=== PATIENT | male | born 1955 | race Caucasian/White ===

== ENCOUNTER 2016-09-27 12:41 | Emergency (ER) | payer BC ==
[2016-09-27] MEDS ORDERED: ASPIRIN 81 MG TABLET, CHEWABLE PO ONE (13:41)
--- NOTE | 2016-09-27 13:49 | ER Document Report ---
ED Medical Screen (RME) - General Chief Complaint: Dizziness Stated Complaint: DIZZINESS Time Seen by Provider: 09/27/16 13:40 Mode of Arrival: Ambulatory Information source: Patient Notes: 61-year-old male presents with complaints of indigestion over the past 2 nights today he had vertigo-like symptoms with chest tightness and flushing sensation. Patient denies any previous cardiac history, patient notes that he had a normal stress test recently I have greeted and performed a rapid initial assessment of this patient. A comprehensive ED assessment and evaluation of the patient, analysis of test results and completion of the medical decision making process will be conducted by additional ED providers. PHYSICAL EXAMINATION: GENERAL: Well-appearing, well-nourished and in no acute distress. HEAD: Atraumatic, normocephalic. EYES: Pupils equal round extraocular movements intact, conjunctiva are normal. ENT: Nares patent NECK: Normal range of motion LUNGS: No respiratory distress Musculoskeletal: Normal range of motion NEUROLOGICAL: Normal speech, normal gait. PSYCH: Normal mood, normal affect. SKIN: Warm, Dry, normal turgor, no rashes or lesions noted. TRAVEL OUTSIDE OF THE [place] IN LAST 30 DAYS: No - Related Data Allergies/Adverse Reactions: ant bites Allergy (Uncoded 09/27/16 13:29) Past Medical History - Social History Chew tobacco use (# tins/day): No Frequency of alcohol use: None Drug Abuse: None - Past Medical History Cardiac Medical History: Reports: Hx Hypertension Renal/ Medical History: Denies: Hx Peritoneal Dialysis Past Surgical History: Reports: Hx Orthopedic Surgery - right shoulder Physical Exam - Vital signs Vitals: Temp Pulse Resp BP Pulse Ox 97.8 F 63 16 175/94 H 94 09/27/16 12:49 09/27/16 12:49 09/27/16 12:49 09/27/16 12:49 09/27/16 12:49 Course - Vital Signs Vital signs: Temp Pulse Resp BP Pulse Ox 97.8 F 63 16 175/94 H 94 09/27/16 12:49 09/27/16 12:49 09/27/16 12:49 09/27/16 12:49 09/27/16 12:49
[2016-09-27 14:34] LABS: ABSOLUTE BASOPHILS # (AUTO) 0.1 10^3/uL (0.0-0.2); ABSOLUTE EOSINOPHILS # (AUTO) 0.2 10^3/uL (0.0-0.6); ABSOLUTE LYMPHOCYTES (AUTO) 2.6 10^3/uL (0.5-4.7); ABSOLUTE MONOCYTES (AUTO) 0.5 10^3/uL (0.1-1.4); ABSOLUTE NEUT (AUTO) 6.4 10^3/uL (1.7-8.2); BASOPHILS % (AUTO) 0.6 % (0-2); EOSINOPHILS % (AUTO) 2.1 % (0-6); HEMATOCRIT 48.1 % (37.9-51.0); HEMOGLOBIN 16.5 g/dL (13.5-17.0); HGB HCT DIFFERENCE 1.4; LYMPHOCYTES % (AUTO) 26.4 % (13-45); MEAN CORPUSCULAR HEMOGLOBIN 30.4 pg (27.0-33.4); MEAN CORPUSCULAR HGB CONC 34.2 g/dL (32.0-36.0); MEAN CORPUSCULAR VOLUME 89 fl (80-97); MONOCYTES % (AUTO) 5.3 % (3-13); RED BLOOD COUNT 5.41 10^6/uL (4.35-5.55); RED CELL DISTRIBUTION WIDTH 13.6 % (11.5-14.0); SEGMENTED NEUTROPHILS % (AUTO) 65.6 % (42-78); WHITE BLOOD COUNT 9.8 10^3/uL (4.0-10.5)
--- NOTE | 2016-09-27 14:40 | RADIOLOGY REPORT (SQ) ---
EXAM DESCRIPTION: CHEST SINGLE VIEW COMPLETED DATE/TIME: 09/27/2016 2:33 pm REASON FOR STUDY: dizzy COMPARISON: None. EXAM PARAMETERS: NUMBER OF VIEWS: One view. TECHNIQUE: Single frontal radiographic view of the chest acquired. RADIATION DOSE: NA LIMITATIONS: None. FINDINGS: LUNGS AND PLEURA: No opacities, masses or pneumothorax. No pleural effusion. MEDIASTINUM AND HILAR STRUCTURES: No masses. Contour normal. HEART AND VASCULAR STRUCTURES: Heart normal in size. Normal vasculature. BONES: No acute findings. HARDWARE: None in the chest. OTHER: No other significant finding. IMPRESSION: NO ACUTE RADIOGRAPHIC FINDING IN THE CHEST. TECHNICAL DOCUMENTATION: JOB ID: [id number]
[2016-09-27 14:58] LABS: ALANINE AMINOTRANSFERASE 49 U/L (21-72); ALBUMIN 4.6 g/dL (3.5-5.0); ALKALINE PHOSPHATASE 76 U/L (38-126); ANION GAP 13 (5-19); ASPARTATE AMINO TRANSFERASE 37 U/L (17-59); BILIRUBIN,DIRECT 0.3 mg/dL (0.0-0.4); BILIRUBIN,TOTAL 0.7 mg/dL (0.2-1.3); BLOOD UREA NITROGEN 13 mg/dL (7-20); CALCIUM 9.3 mg/dL (8.4-10.2); CARBON DIOXIDE 24 mmol/L (22-30); CHLORIDE 105 mmol/L (98-107); CREATINE KINASE 270 U/L (55-170); CREATININE RESULT 1.01 mg/dL (0.52-1.25); GLUCOSE 90 mg/dL (75-110); POTASSIUM 4.4 mmol/L (3.6-5.0); SODIUM 142.3 mmol/L (137-145); TOTAL PROTEIN 7.3 g/dL (6.3-8.2)
[2016-09-27 15:10] LABS: CREATINE KINASE MB 3.67 ng/mL (<4.55)
[2016-09-27 15:14] LABS: TROPONIN I < 0.012 ng/mL
--- NOTE | 2016-09-27 16:27 | ER Document Report ---
ED General - General Chief Complaint: Dizziness Stated Complaint: DIZZINESS Time Seen by Provider: 09/27/16 13:40 Mode of Arrival: Ambulatory Notes: 61-year-old male presents with complaints of indigestion over the past 2 nights today he had vertigo-like symptoms with chest tightness and flushing sensation. He took Tums and the indigestion did seem to help. He described this as a burning in his chest and bad taste. Today at work approximately 10:00 he was sitting on a stool working and developed vertigo-like symptoms after initially feeling a flushed sensation leading diffusely over his head from the neck up. With this she had some vulvar arm numbness and tingling bilaterally. Symptoms were improving but when he leaned over her symptoms got worse again and he developed chest tightness that seemed to improve after he stood back up. The vertigo persisted for probably an hour and has improved significantly at this point. He was seen by his PCP in [place] and his systolic pressure was noted to be 180. He states occasionally he does have some elevated blood pressures but is not treated for this. Patient denies any previous cardiac history, patient notes that he had a normal stress test recently. Does smoke 2 packs of cigarettes a day has borderline cholesterol treated by diet. Not have any focal weakness at all speech or swallowing difficulty, diplopia or other significant visual change but does notice occasionally some difficulty focusing. No other pain was associated. When he saw his PCP they felt that his left leg seems slightly weak at the left leg raising it up. He has not noticed this and has had no limping or gait abnormalities. Denies headache. TRAVEL OUTSIDE OF THE [place] IN LAST 30 DAYS: No - Related Data Allergies/Adverse Reactions: ant bites Allergy (Uncoded 09/27/16 13:29) Past Medical History - General Information source: Patient - Social History Smoking Status: Current Every Day Smoker Chew tobacco use (# tins/day): No Frequency of alcohol use: None Drug Abuse: None Family History: Reviewed & Not Pertinent Patient has suicidal ideation: No Patient has homicidal ideation: No - Past Medical History Cardiac Medical History: Reports: Hx Hypertension Renal/ Medical History: Denies: Hx Peritoneal Dialysis Past Surgical History: Reports: Hx Orthopedic Surgery - right shoulder Review of Systems - Review of Systems -: Yes All other systems reviewed and negative Physical Exam - Vital signs Vitals: Temp Pulse Resp BP Pulse Ox 97.8 F 63 16 175/94 H 94 09/27/16 12:49 09/27/16 12:49 09/27/16 12:49 09/27/16 12:49 09/27/16 12:49 Interpretation: Hypertensive - Notes Notes: GENERAL: VS as per nursing doc. Well-appearing, well-nourished and in no acute distress. HEAD: Atraumatic, normocephalic. EYES: Pupils equal round and reactive to light, extraocular movements intact, sclera anicteric, no conjunctival injection or discharge. ENT: Nares patent, oropharynx clear without exudates. Moist mucous membranes. NECK: Normal range of motion, supple, no carotid bruits. LUNGS: Breath sounds coarse bilaterally and equal. No wheezes rales or rhonchi. HEART: Normal S1S2. Regular rate and rhythm without murmurs. Equal peripheral pulses. ABDOMEN: Soft, non-tender. No appreciable mass. EXTREMITIES: Normal range of motion. No calf tenderness. Negative Homans. No edema. NEUROLOGICAL: GCS 15, Cranial nerves II-XII intact. Normal visual rendon. Normal speech without aphasia. No pronator drift. 5/5 RUE strength, 5/5 RLE strength, 5/5 LUE strength, 5/5 LLE strength. No cerebellar abnormalities including normal finger-nose testing. Negative Babinski, 2+= DTR refelexes. Gait intact, normal heel vallejo testing. PSYCH: Normal mood, normal affect. SKIN: Warm, Dry, no cyanosis, Cap refill < 2 sec. Course - Re-evaluation Re-evalutation: 09/27/16 19:39 Patient's blood pressures continued to normalize. CT of the head showed some mild sinus disease and chest x-ray showing no acute disease. He has a hearts 3 score of 3 based on possible ischemia age and male gender. I discussed with the patient that we usually admit people for stress test. We discussed the involved and he voices understanding. He did have a negative stress 1-1/2 years ago. Furthermore, discussed with him differential diagnosis for vertigo which could be ischemia and patient still wanted to go home rather than admission as I suggested/offered. He will record his blood pressures at home and speak with his primary care physician that he plans to follow-up with. As well he will use a daily baby aspirin. - Vital Signs Vital signs: Temp Pulse Resp BP Pulse Ox 97.8 F 63 18 137/78 H 98 09/27/16 12:49 09/27/16 12:49 09/27/16 18:01 09/27/16 18:01 09/27/16 18:01 - Laboratory Result Diagrams: 09/27/16 14:11 09/27/16 14:11 Laboratory results interpreted by me: 09/27/16 14:11 Creatine Kinase 270 H Discharge - Discharge Clinical Impression: Vertigo, Chest pain Disposition: HOME, SELF-CARE Instructions: Vertigo ([facility]), Meclizine ([facility]) Additional Instructions: Please quit smoking. Contact your physician tomorrow for follow-up. I suggest keeping a record of your blood pressures as we discussed. Please return if you are worsening or for other concern. Baby aspirin daily as discussed. Prescriptions: Meclizine HCl [Antivert 25 mg Tablet] 25 mg PO TID PRN #15 tablet PRN Reason: Forms: Elevated Blood Pressure, Smoking Cessation Education
--- NOTE | 2016-09-27 19:13 | RADIOLOGY REPORT (SQ) ---
EXAM DESCRIPTION: CT HEAD WITHOUT COMPLETED DATE/TIME: 09/27/2016 7:04 pm REASON FOR STUDY: Vertigo COMPARISON: None. TECHNIQUE: Axial images acquired through the brain without intravenous contrast. Images reviewed wi th bone, brain and subdural windows. Images stored on PACS. All CT scanners at this facility use dose modulation, iterative reconstruction, and/or weight based d osing when appropriate to reduce radiation dose to as low as reasonably achievable (ALARA). [facility]: Dose Right [facility]: CareDose [facility]: Dose Right [facility]: Teradose 4D [facility]: A [place] RADIATION DOSE: 64.61 mGy. LIMITATIONS: None. FINDINGS: VENTRICLES: Normal size and contour. CEREBRUM: No masses. No hemorrhage. No midline shift. Normal lopez/white matter differentiation. N o evidence for acute infarction. CEREBELLUM: No masses. No hemorrhage. No alteration of density. No evidence for acute infarction. EXTRAAXIAL SPACES: No fluid collections. No masses. ORBITS AND GLOBE: No intra- or extraconal masses. Normal contour of globe without masses. CALVARIUM: No fracture. PARANASAL SINUSES: Mucous membrane thickening in the left maxillary sinus. SOFT TISSUES: No mass or hematoma. OTHER: No other significant finding. IMPRESSION: NORMAL BRAIN CT WITHOUT CONTRAST. SINUS DISEASE. TECHNICAL DOCUMENTATION: JOB ID: [id number] Quality ID # [id number]: Final reports with documentation of one or more dose reduction techniques (e.g., Au tomated exposure control, adjustment of the mA and/or kV according to patient size, use of iterative reconstruction technique) 2010 [employer]- All Rights Reserved
[2016-09-27 20:11] VITALS: BP 144/83
--- NOTE | 2016-09-28 11:03 | EKG REPORT ---
SEVERITY:- NORMAL ECG - SINUS RHYTHM : Confirmed by: Alisha Kyle MD 28-Sep-2016 11:02:14
== END 2016-09-27 20:10 | disposition home or self-care (01) ==
LOC: ER 12:41
DX: R42 Dizziness and giddiness (principal); R07.9 Chest pain, unspecified; F17.200 Nicotine dependence, unspecified, uncomplicated; I10 Essential (primary) hypertension
CPT/HCPCS: 36415; 70450; 71010; 80053; 82550; 82553; 84484; 85025; 93005; 93010; 99285

== ENCOUNTER 2019-02-26 17:40 | Emergency (ER) | payer BC ==
[2019-02-26] MEDS ORDERED: DIPH/PERTUSS(ACELL)/TETANUS VAC/PF 0.5 ML SYR (>=10YO) IM ONE (17:51)
--- NOTE | 2019-02-26 17:56 | ER Document Report ---
ED Medical Screen (RME) - General Chief Complaint: Laceration Stated Complaint: FINGER LACERATION Time Seen by Provider: 02/26/19 17:51 Mode of Arrival: Ambulatory Information source: Patient Notes: 63-year-old man presented to ED for laceration to the second third fourth and fifth finger on the right hand. He states the injury was run and the pain was going and he reached in to check the temperature of the radiator slicing the fingers the third finger is the worst laceration with possible bone exposure. States he does not know when his last tetanus immunization was in a will be given today. States he does smoke 2 packs a day. History of hypertension. States he started to get arthritis he has had previous broken bones. I have greeted and performed a rapid initial assessment of this patient. A comprehensive ED assessment and evaluation of the patient, analysis of test results and completion of medical decision making process will be conducted by an additional ED providers. TRAVEL OUTSIDE OF THE [place] IN LAST 30 DAYS: No - Related Data Allergies/Adverse Reactions: ant bites Allergy (Uncoded 09/27/16 13:29) Past Medical History - Past Medical History Cardiac Medical History: Reports: Hx Hypertension Renal/ Medical History: Denies: Hx Peritoneal Dialysis Past Surgical History: Reports: Hx Orthopedic Surgery - right shoulder Physical Exam - Vital signs Vitals: Temp Pulse Resp BP Pulse Ox 98.4 F 117 H 17 180/106 H 95 02/26/19 17:46 02/26/19 17:46 02/26/19 17:46 02/26/19 17:46 02/26/19 17:46 Course - Vital Signs Vital signs: Temp Pulse Resp BP Pulse Ox 98.4 F 117 H 17 180/106 H 95 02/26/19 17:46 02/26/19 17:46 02/26/19 17:46 02/26/19 17:46 02/26/19 17:46
[2019-02-26] MEDS ORDERED: ACETAMINOPHEN 325 MG TABLET PO ONE (17:57)
--- NOTE | 2019-02-26 18:22 | RADIOLOGY REPORT (SQ) ---
EXAM DESCRIPTION: HAND RIGHT 3 VIEWS COMPLETED DATE/TIME: 02/26/2019 6:12 pm REASON FOR STUDY: Right hand with lacerations 2,3,4,5 fingers lacera COMPARISON: None. EXAM PARAMETERS: NUMBER OF VIEWS: Three views. TECHNIQUE: AP, lateral and oblique radiographic images acquired of the right hand. LIMITATIONS: None. FINDINGS: MINERALIZATION: Normal. BONES: Nondisplaced small finger tuft fracture. JOINTS: No effusions. Scattered degenerative changes. SOFT TISSUES: Soft tissue injuries of the distal long and small fingers. OTHER: No other significant finding. IMPRESSION: Nondisplaced small finger tuft fracture. Soft tissue injuries of the distal long and small fingers. TECHNICAL DOCUMENTATION: JOB ID: [id number] [employer]- All Rights Reserved Reading location - IP/workstation name: [email or web address]
[2019-02-26] MEDS ORDERED: OXYCODONE HCL IR 5 MG TABLET PO ONE (18:58)
[2019-02-26] MEDS ORDERED: CEFAZOLIN 2 GM/D5W RTU 2 GM/50 ML RTUPB IV ONE (20:46)
[2019-02-26] MEDS ORDERED: ONDANSETRON HCL INJ/PF 4 MG/2 ML SDV IV ONE (20:47)
[2019-02-26] MEDS ORDERED: BUPIVACAINE HCL 0.5 % INJ/PF 30 ML SDV INJ ONE (20:47)
[2019-02-26] MEDS ORDERED: LIDOCAINE 1% INJ-PF (10 MG/ML) 30 ML SDV INJ ONE (20:47)
--- NOTE | 2019-02-26 20:50 | ER Document Report ---
ED Wound - General Chief Complaint: Laceration Stated Complaint: FINGER LACERATION Time Seen by Provider: 02/26/19 17:51 Primary Care Provider: KSENIA CHANDLER DO [ACTIVE STAFF] - Follow up tomorrow Mode of Arrival: Ambulatory Notes: Patient is a 63-year-old male that comes to the emergency department for chief complaint of lacerations to the right second, third, fourth, and fifth fingers after he stuck his hand into a radiator and was cut by the fan that was still running. Patient is right-handed. He is not up-to-date on his tetanus. Other than finger lacerations he denies any other injuries. He does smoke but he denies diabetes. Family at bedside. TRAVEL OUTSIDE OF THE [place] IN LAST 30 DAYS: No - Related Data Allergies/Adverse Reactions: ant bites Allergy (Uncoded 09/27/16 13:29) Past Medical History - General Information source: Patient - Social History Smoking Status: Current Every Day Smoker Frequency of alcohol use: None Drug Abuse: None Lives with: Family Family History: Reviewed & Not Pertinent Patient has suicidal ideation: No Patient has homicidal ideation: No - Past Medical History Cardiac Medical History: Reports: Hx Hypertension Renal/ Medical History: Denies: Hx Peritoneal Dialysis Past Surgical History: Reports: Hx Orthopedic Surgery - right shoulder - Immunizations Immunizations up to date: No Hx Diphtheria, Pertussis, Tetanus Vaccination: Yes Review of Systems - Review of Systems Constitutional: No symptoms reported EENT: No symptoms reported Cardiovascular: No symptoms reported Respiratory: No symptoms reported Gastrointestinal: No symptoms reported Genitourinary: No symptoms reported Male Genitourinary: No symptoms reported Musculoskeletal: See HPI Skin: See HPI Hematologic/Lymphatic: No symptoms reported Neurological/Psychological: No symptoms reported Physical Exam - Vital signs Vitals: Temp Pulse Resp BP Pulse Ox 98.4 F 117 H 17 180/106 H 95 02/26/19 17:46 02/26/19 17:46 02/26/19 17:46 02/26/19 17:46 02/26/19 17:46 - Notes Notes: GENERAL: Alert, interacts well. No acute distress. HEAD: Normocephalic, atraumatic. EYES: Pupils equal, round, and reactive to light. Extraocular movements intact. ENT: Oral mucosa moist, tongue midline. Oropharynx unremarkable. Airway patent. LUNGS: Clear to auscultation bilaterally, no wheezes, rales, or rhonchi. No respiratory distress. HEART: Regular rate and rhythm. No murmur ABDOMEN: Soft, non-tender. Non-distended. Bowel sounds present in all 4 quadrants. GENITOURINARY: Deferred EXTREMITIES: Irregular lacerations to the fingertips of the second, third, fourth, and fifth digits of the right hand. No nail involvement. Full range of motion and strength against extension and flexion of all fingers. No other areas of lacerations noted. No other injuries noted. Normal hand, wrist, forearm exam otherwise. BACK: no cervical, thoracic, lumbar midline tenderness. No saddle anesthesia, normal distal neurovascular exam. NEUROLOGICAL: Alert and oriented x3. Normal speech. Cranial nerves II through XII grossly intact. PSYCH: Normal affect, normal mood. SKIN: Warm, dry, normal turgor. No rashes or lesions noted. Course - Re-evaluation Re-evalutation: There is a tuft fracture to the right fifth digit along with the laceration. This was thoroughly cleansed, explored, irrigated along with the other lacerations. Digital blocks were performed for each finger. Patient given Ancef, after repair was performed he was placed in protective splint and he will be provided with antibiotics and sent to orthopedics. I discussed strict follow-up in regards to this. I discussed signs of infection and return precautions as well. No other injuries noted, patient family state appreciation and agreement. - Vital Signs Vital signs: Temp Pulse Resp BP Pulse Ox 98.6 F 98 16 160/84 H 95 02/27/19 00:15 02/27/19 00:15 02/27/19 00:15 02/27/19 00:15 02/26/19 17:46 Procedures - Laceration/Wound Repair Right index finger Wound length (cm): 1 Wound's Depth, Shape: Superficial, Irregular Laceration pre-procedure: Sterile PPE donned, Sterile drapes applied, Shur-Clens applied Anesthetic type: 0.5% Bupivacaine Wound explored: Clean, No foreign body removed Wound Debrided: Minimal Wound Repaired With: Sutures Suture Size/Type: 5:0, Nylon Number of Sutures: 4 Layer Closure?: No Post-procedure wound care: Sterile dressing applied Post-procedure NV exam normal: Yes Complications: No Right middle finger Wound length (cm): 2.5 Wound's Depth, Shape: Irregular - Extremely irregular laceration but still only partial-thickness with no visualized bone or internal structures Laceration pre-procedure: Sterile PPE donned, Sterile drapes applied, Shur-Clens applied Anesthetic type: 0.5% Bupivacaine Wound explored: Clean, No foreign body removed Wound Repaired With: Sutures Suture Size/Type: 5:0, Nylon Number of Sutures: 13 Layer Closure?: No Post-procedure wound care: Sterile dressing applied Post-procedure NV exam normal: Yes Complications: No Right ring finger Wound length (cm): 1 Wound's Depth, Shape: Irregular, Flap Laceration pre-procedure: Sterile PPE donned, Sterile drapes applied, Shur-Clens applied Anesthetic type: 0.5% Bupivacaine Wound explored: Clean Wound Repaired With: Sutures Suture Size/Type: 5:0, Nylon Number of Sutures: 3 Layer Closure?: No Post-procedure wound care: Sterile dressing applied Post-procedure NV exam normal: Yes Complications: No Right fifth digit Wound length (cm): 2 Wound's Depth, Shape: Irregular Laceration pre-procedure: Sterile PPE donned, Sterile drapes applied, Shur-Clens applied Anesthetic type: 0.5% Bupivacaine Wound explored: Clean Wound Repaired With: Sutures Suture Size/Type: 5:0, Nylon Layer Closure?: No Post-procedure wound care: Sterile dressing applied, Splint applied Post-procedure NV exam normal: Yes Complications: No Discharge - Discharge Clinical Impression: Open fracture of tuft of distal phalanx of finger Finger laceration Qualifiers: Encounter type: initial encounter Finger: unspecified finger Damage to nail status: without damage Foreign body presence: without foreign body Laterality: right Qualified Code(s): S61.219A - Laceration without foreign body of unspecified finger without damage to nail, initial encounter Disposition: HOME, SELF-CARE Additional Instructions: Your x-ray shows a small tuft fracture on the fifth digit (little finger). You have been given initial antibiotics, please take the antibiotics as prescribed. Take the pain medication if needed. Call Dr. Chandler's office for close follow-up and additional management. Call tomorrow to set up your appointment. Keep the splint to protect the fifth finger, you can tyler tape it to the fourth finger for support as well. Change dressings daily, clean gently with soap and water, apply topical antibiotic and bandage. Avoid soaking or scrubbing the area. While taking the antibiotic I recommend taking an [id number] probiotic to avoid diarrhea. Return for any concerning symptoms including signs of infection such as developing pain, swelling, redness, discolored discharge, fever, or any other concerning symptoms. Prescriptions: Amox Tr/Potassium Clavulanate [Augmentin 875-125 Tablet] 1 tab PO BID 7 Days tablet Hydrocodone/Acetaminophen [[place] 5-325 mg Tablet] 1 - 2 tab PO ASDIR PRN #8 tablet PRN Reason: Forms: Elevated Blood Pressure Referrals: KSENIA CHANDLER DO [ACTIVE STAFF] - Follow up tomorrow
[2019-02-26] MEDS ORDERED: CEFAZOLIN SODIUM 2 GM in DEXTROSE 5%-WATER 100 ML IV ONE (21:30)
[2019-02-26] MEDS ORDERED: LORAZEPAM INJ 2 MG/1 ML VIAL ONE (22:32)
[2019-02-26] MEDS ORDERED: LORAZEPAM INJ 2 MG/1 ML VIAL IV ONE (22:34)
[2019-02-26] MEDS ORDERED: HYDROCODONE/ACETAMINOPHEN 5-325 MG (6 TAB/ER DISP) PO PRN (23:00)
[2019-02-27 00:16] VITALS: BP 160/84
== END 2019-02-27 00:16 | disposition home or self-care (01) ==
LOC: ER 17:40
DX: S62.666B Nondisplaced fracture of distal phalanx of right little finger, initial encounter for open fracture (principal); W20.8XXA Other cause of strike by thrown, projected or falling object, initial encounter; Y93.89 Activity, other specified; F17.200 Nicotine dependence, unspecified, uncomplicated; I10 Essential (primary) hypertension; Z91.038 Other insect allergy status
CPT/HCPCS: 82962; 73130; 90715; 12002; J3490 ×2; J0690; J2060; J2405; J7060; 90471; 96365; 96375; 99283